=== PATIENT | female | born 1965 | race Caucasian/White ===

== ENCOUNTER 2022-08-23 15:13 | Outpatient (CLI) | payer BC, SELFPAY ==
[2022-08-23 13:25] LABS: Cholesterol* 153 mg/dL (90-199); Triglycerides* 191 mg/dL (40-149)
[2022-08-23 13:26] LABS: HDL Cholesterol* 34 mg/dL (>=50); LDL Cholesterol Calculated 81 mg/dL (<100)
== END 2022-08-23 15:14 | disposition home or self-care (01) ==
PROVIDERS: PCP Emergency Medicine; Visit Provider Emergency Medicine
DX: E78.5 Hyperlipidemia, unspecified (principal)
CPT/HCPCS: 80061

== ENCOUNTER 2023-10-11 08:07 | Outpatient (CLI) | payer OTHER, SELFPAY | END 2023-10-11 08:08 | disposition home or self-care (01) | LOC: NFLDREF 10-17 12:02 | PROVIDERS: PCP Emergency Medicine; Referring Provider Emergency Medicine; Visit Provider Emergency Medicine | DX: E78.1 Pure hyperglyceridemia (principal); E78.5 Hyperlipidemia, unspecified | CPT/HCPCS: 80053; 80061 ==

== ENCOUNTER 2023-10-25 11:09 | Outpatient (CLI) | payer OTHER, SELFPAY | END 2023-10-25 11:10 | disposition home or self-care (01) | PROVIDERS: PCP Emergency Medicine; Visit Provider Emergency Medicine | DX: R17 Unspecified jaundice (principal); R73.01 Impaired fasting glucose; R53.83 Other fatigue | CPT/HCPCS: 80076; 84443 ==

== ENCOUNTER 2023-12-12 18:31 | Outpatient (CLI) | payer OTHER, SELFPAY ==
--- NOTE | 2023-12-25 08:53 | W.PM.SLEEP ---
Sleep Study Details Details Interpreting Provider: Stefany Leyva Date of Sleep Study: 12/12/23 Sleep Study Details: STUDY TYPE:? Home unattended ? BMI:? 31.3 ORDERING PROVIDER:Justine Chiang INDICATION:? Concerns about sleep apnea ? SLEEP SUMMARY:? 367 minutes monitor RESPIRATORY SUMMARY:? AHI 12.3 (using rule 1A AHI is 16.8) Low oxygen 80 13.4% of study oxygen less than 90% Snoring 14.6% PERIODIC LIMB MOVEMENTS OF SLEEP:? Not recorded during home study CARDIAC:? Range 62-88, mean 70.3 beats per minute IMPRESSION:? Mild to moderate obstructive sleep apnea with significant desaturations. RECOMMENDATION: Treatment options include CPAP AutoSet 4-17, dental appliance and/or airway expansion surgery. Once effective therapy is established recommend an overnight oximetry study.
== END 2023-12-12 18:32 | disposition home or self-care (01) ==
LOC: SLEEP 18:32
PROVIDERS: PCP Emergency Medicine; Visit Provider Emergency Medicine
DX: G47.33 Obstructive sleep apnea (adult) (pediatric) (principal)
CPT/HCPCS: 95806

== ENCOUNTER 2024-11-05 10:56 | Outpatient (CLI) | payer OTHER, SELFPAY | END 2024-11-05 10:57 | disposition home or self-care (01) | PROVIDERS: PCP Emergency Medicine; Visit Provider Emergency Medicine | DX: E78.1 Pure hyperglyceridemia (principal); R73.01 Impaired fasting glucose; E80.4 Gilbert syndrome | CPT/HCPCS: 80053; 80061 ==

== ENCOUNTER 2025-03-18 11:33 | Outpatient (CLI) | payer OTHER, SELFPAY | END 2025-03-18 11:34 | disposition home or self-care (01) | PROVIDERS: PCP Emergency Medicine; Visit Provider Emergency Medicine | DX: N95.1 Menopausal and female climacteric states (principal); R53.81 Other malaise; R07.9 Chest pain, unspecified | CPT/HCPCS: 80048 ==

== ENCOUNTER 2025-03-26 12:40 | Outpatient (CLI) | payer OTHER, SELFPAY ==
--- NOTE | 2025-03-26 13:35 | P.STN_ITS ---
Stress Test Note Date Date Seen: 03/26/25 Date of test: 03/26/25 Providers Primary care provider: Haydee Good Stress test physician: Bety Dial Stress Test Note Stress test ordered: Exercise Stress Test Indication for test: Chest pain Stress test medicine: None Results discussion: Resting EKG: Sinus rhythm, 80 beats per minute, some artifact noted. Poor R- wave progression anterior precordial leads. Resting blood pressure: 122/74 Stress test: Patient is consented on exercise stress test following standard [facility] protocol. She consents to this test. He is reported that prior authorization further stress test beyond the treadmill exercise stress test was declined by insurance. Patient is able to exercise 3 minutes 5 seconds, needing to stop due to reaching exercise tolerance. This is equivalent of 4.6 Mets. She had a maximum heart rate of 143 beats per minute which was 103% of a calculated target heart rate of 138. She had maximal blood pressure 137/78 just into recovery. Rate pressure product is 19,448. She had no chest pain, needed to stop due to reaching exercise tolerance with shortness of breath and her legs burning from the incline. One PVC was seen, otherwise no arrhythmia, no diagnostic ischemic changes seen. Impression: Subjectively negative, objectively negative treadmill [facility] protocol exercise stress test, limited by exercise intolerance. Follow up suggested: Patient will follow-up with her primary care provider. It sounds as if some of her symptoms changed post COVID infection. She will continue to work with her provider regarding her symptoms. She is discharged from here in stable condition.
[2025-03-26 13:37] VITALS: BP 126/70; PULSE 87; RESP 18
== END 2025-03-26 12:41 | disposition home or self-care (01) ==
LOC: STRESS 12:41
PROVIDERS: PCP Emergency Medicine; Visit Provider Emergency Medicine
DX: R07.9 Chest pain, unspecified (principal)
CPT/HCPCS: 93016; 93017

== ENCOUNTER 2025-11-11 07:56 | Outpatient (CLI) | payer OTHER, SELFPAY | END 2025-11-11 07:57 | disposition home or self-care (01) | LOC: NFLDREF 11-16 08:46 | PROVIDERS: Visit Provider Family Medicine | DX: E78.2 Mixed hyperlipidemia (principal); R17 Unspecified jaundice; R73.01 Impaired fasting glucose; Z00.00 Encounter for general adult medical examination without abnormal findings | CPT/HCPCS: 80053; 80061 ==